=== PATIENT | female | born 2000 | race Caucasian/White ===

== ENCOUNTER 2021-03-14 08:46 | Emergency (ER) | payer SELFPAY ==
[~2021-03-14] VITALS: Ht 157.5 cm; Wt 88.6 kg
[2021-03-14] MEDS ORDERED: ALBUTEROL SUL0.083 % IN (09:08)
[2021-03-14] MEDS ORDERED: MEDDOSEPAK PO ×2 (10:16→11:44)
[2021-03-14] MEDS ORDERED: ZPAK PO ×2 (10:16→11:44)
[2021-03-14] MEDS ORDERED: ROBITUSSIN AC10 ML PO (10:16)
[2021-03-14 10:20] VITALS: BP 117/70
== END 2021-03-14 10:25 | disposition home or self-care (01) | DRG 203 ==
LOC: ED 08:46
DX: J20.9 Acute bronchitis, unspecified (principal); J45.909 Unspecified asthma, uncomplicated; Z20.822 Contact with and (suspected) exposure to COVID-19

== ENCOUNTER 2021-03-26 22:43 | Emergency (ER) | payer OTHER ==
[~2021-03-26 22:43] MED LIST: ALBUTEROL SUL0.083 % IN; MEDDOSEPAK PO; ROBITUSSIN AC10 ML PO; ZPAK PO
[2021-03-27 00:18] LABS: HEMATOCRIT 44.8 % (37.0-47.0); HEMOGLOBIN 14.9 g/dl (12.0-16.0); IMMATURE GRANULOCYTES 0.4 % (0.0-5.0); MEAN CORPUSCULAR HGB 28.6 pG CALC (26.0-32.0); MEAN CORPUSCULAR HGB CONC 33.3 g/dL CAL (32.0-36.0); NEUT# 2.18 thou/uL (2.00-7.15); RED BLOOD COUNT 5.21 mill/uL (4.20-5.60); RED CELL DISTRI WIDTH 11.7 % (11.5-15.5)
[2021-03-27 00:29] LABS: HCG SERUM/URINE (NEG/POS) NEGATIVE (NEGATIVE)
[2021-03-27 00:31] LABS: ALBUMIN 4.1 g/dL (3.2-5.0); ALKALINE PHOSPHATASE 93 u/l (38-126); ANION GAP 13 (6-22 (CALC)); BILIRUBIN, TOTAL 0.2 mg/dL (0.0-1.4); BUN 12 mg/dL (7-17); BUN/CREATININE RATIO 16 (12-20 (CALC)); CARBON DIOXIDE 24 mmol/l (22-30); CHLORIDE 104 mmol/l (95-108); CREATININE 0.7 mg/dL (0.5-1.0); GFR > 60 ML/MIN (>=60 (CALC)); GFR FOR AFR.AMER. > 60 ML/MIN (>=60 (CALC)); POTASSIUM 4.2 mmol/l (3.5-5.1); SGOT/AST 53 u/l (14-36); SODIUM 137 mmol/l (137-146); TOTAL PROTEIN 7.9 g/dL (6.3-8.2)
[2021-03-27 02:41] LABS: URINE BILIRUBIN - DIPSTICK NEGATIVE (NEGATIVE); URINE BLOOD DIPSTICK NEGATIVE (NEGATIVE); URINE COLOR YELLOW; URINE GLUCOSE - DIPSTICK NEGATIVE (NEGATIVE); URINE KETONE TRACE mg/dL (NEGATIVE); URINE LEUK ESTERASE NEGATIVE (NEGATIVE); URINE PROTEIN - DIPSTICK NEGATIVE (NEG-TRACE); URINE SPECIFIC GRAVITY 1.015; URINE UROBILINOGEN - DIPSTICK 0.2 E.U./dL (0.2)
[2021-03-27 02:44] LABS: URINE NITRITE - DIPSTICK NEGATIVE (Negative)
[2021-03-27] MEDS ORDERED: Levaquin PO (02:57)
[2021-03-27 03:09] VITALS: BP 127/73
== END 2021-03-27 03:30 | disposition home or self-care (01) | DRG 179 ==
LOC: ED 22:43
PROVIDERS: Emergency Medicine
DX: U07.1 COVID-19 (principal); J06.9 Acute upper respiratory infection, unspecified; J45.909 Unspecified asthma, uncomplicated; F17.200 Nicotine dependence, unspecified, uncomplicated
CPT/HCPCS: J1956

== ENCOUNTER 2021-03-28 19:53 | Inpatient (IN) | payer OTHER ==
[~2021-03-28] VITALS: Ht 157.5 cm; Wt 99.0 kg
[~2021-03-28 19:53] MED LIST changes: +Levaquin PO
[2021-03-28 20:40] LABS: HEMATOCRIT 39.3 % (37.0-47.0); IMMATURE GRANULOCYTES 0.3 % (0.0-5.0); MEAN CELL VOLUME 87.1 fL CALC (80.0-100.0); MEAN CORPUSCULAR HGB 28.6 pG CALC (26.0-32.0); MEAN CORPUSCULAR HGB CONC 32.8 g/dL CAL (32.0-36.0); NEUT# 2.81 thou/uL (2.00-7.15); RED BLOOD COUNT 4.51 mill/uL (4.20-5.60); RED CELL DISTRI WIDTH 11.6 % (11.5-15.5)
[2021-03-28 20:50] LABS: HEMOGLOBIN 12.9 g/dl (12.0-16.0)
[2021-03-28 21:48] LABS: ALBUMIN 3.5 g/dL (3.2-5.0); ALKALINE PHOSPHATASE 77 u/l (38-126); ANION GAP 13 (6-22 (CALC)); BUN 9 mg/dL (7-17); BUN/CREATININE RATIO 15 (12-20 (CALC)); CARBON DIOXIDE 21 mmol/l (22-30); CHLORIDE 104 mmol/l (95-108); CREATININE 0.6 mg/dL (0.5-1.0); GFR > 60 ML/MIN (>=60 (CALC)); GFR FOR AFR.AMER. > 60 ML/MIN (>=60 (CALC)); POTASSIUM 3.6 mmol/l (3.5-5.1); SGOT/AST 85 u/l (14-36); SODIUM 133 mmol/l (137-146); TOTAL PROTEIN 6.7 g/dL (6.3-8.2)
[2021-03-28 21:49] LABS: BILIRUBIN, TOTAL 0.4 mg/dL (0.0-1.4)
[2021-03-29 01:08] VITALS: BP 103/65
[2021-03-29 01:33] LABS: URINE BILIRUBIN - DIPSTICK NEGATIVE (NEGATIVE); URINE BLOOD DIPSTICK NEGATIVE (NEGATIVE); URINE COLOR YELLOW; URINE GLUCOSE - DIPSTICK NEGATIVE (NEGATIVE); URINE KETONE 15 mg/dL (NEGATIVE); URINE LEUK ESTERASE NEGATIVE (NEGATIVE); URINE PROTEIN - DIPSTICK NEGATIVE (NEG-TRACE); URINE UROBILINOGEN - DIPSTICK 0.2 E.U./dL (0.2)
[2021-03-29 01:41] LABS: URINE NITRITE - DIPSTICK NEGATIVE (Negative)
[2021-03-29 03:00] VITALS: BP 111/72
[2021-03-29 05:39] LABS: ALBUMIN 3.3 g/dL (3.2-5.0); ALKALINE PHOSPHATASE 65 u/l (38-126); ANION GAP 12 (6-22 (CALC)); BILIRUBIN, TOTAL 0.3 mg/dL (0.0-1.4); BUN 9 mg/dL (7-17); BUN/CREATININE RATIO 17 (12-20 (CALC)); C-REACTIVE PROTEIN 3.8 mg/dL (0-0.9); CARBON DIOXIDE 22 mmol/l (22-30); CHLORIDE 106 mmol/l (95-108); CREATININE 0.5 mg/dL (0.5-1.0); GFR > 60 ML/MIN (>=60 (CALC)); GFR FOR AFR.AMER. > 60 ML/MIN (>=60 (CALC)); POTASSIUM 4.2 mmol/l (3.5-5.1); SGOT/AST 76 u/l (14-36); SODIUM 136 mmol/l (137-146); TOTAL PROTEIN 6.5 g/dL (6.3-8.2)
[2021-03-29 06:45] LABS: HEMATOCRIT 37.4 % (37.0-47.0); HEMOGLOBIN 12.3 g/dl (12.0-16.0); IMMATURE GRANULOCYTES 0.6 % (0.0-5.0); MEAN CELL VOLUME 86.2 fL CALC (80.0-100.0); MEAN CORPUSCULAR HGB 28.3 pG CALC (26.0-32.0); MEAN CORPUSCULAR HGB CONC 32.9 g/dL CAL (32.0-36.0); NEUT# 1.33 thou/uL (2.00-7.15); RED BLOOD COUNT 4.34 mill/uL (4.20-5.60); RED CELL DISTRI WIDTH 11.7 % (11.5-15.5)
[2021-03-29 08:29] VITALS: BP 111/62
[2021-03-29 11:12] VITALS: BP 112/79
[2021-03-29 14:45] VITALS: BP 110/66
[2021-03-29 19:20] VITALS: BP 113/61
[2021-03-30 00:17] VITALS: BP 122/71
[2021-03-30 03:54] VITALS: BP 126/73
[2021-03-30 05:38] LABS: HEMATOCRIT 38.4 % (37.0-47.0); HEMOGLOBIN 12.7 g/dl (12.0-16.0); IMMATURE GRANULOCYTES 0.4 % (0.0-5.0); MEAN CELL VOLUME 86.9 fL CALC (80.0-100.0); MEAN CORPUSCULAR HGB 28.7 pG CALC (26.0-32.0); MEAN CORPUSCULAR HGB CONC 33.1 g/dL CAL (32.0-36.0); NEUT# 6.57 thou/uL (2.00-7.15); RED BLOOD COUNT 4.42 mill/uL (4.20-5.60); RED CELL DISTRI WIDTH 11.6 % (11.5-15.5)
[2021-03-30 05:50] LABS: ALBUMIN 3.4 g/dL (3.2-5.0); ALKALINE PHOSPHATASE 65 u/l (38-126); ANION GAP 12 (6-22 (CALC)); BILIRUBIN, TOTAL 0.3 mg/dL (0.0-1.4); BUN 12 mg/dL (7-17); BUN/CREATININE RATIO 24 (12-20 (CALC)); C-REACTIVE PROTEIN 2.1 mg/dL (0-0.9); CARBON DIOXIDE 24 mmol/l (22-30); CHLORIDE 107 mmol/l (95-108); CREATININE 0.5 mg/dL (0.5-1.0); GFR > 60 ML/MIN (>=60 (CALC)); GFR FOR AFR.AMER. > 60 ML/MIN (>=60 (CALC)); POTASSIUM 4.2 mmol/l (3.5-5.1); SGOT/AST 62 u/l (14-36); SODIUM 138 mmol/l (137-146); TOTAL PROTEIN 6.6 g/dL (6.3-8.2)
[2021-03-30 08:18] VITALS: BP 116/61
[2021-03-30 11:00] VITALS: BP 116/72
[2021-03-30 14:45] VITALS: BP 115/56
[2021-03-30 19:00] VITALS: BP 114/76
[2021-03-31] VITALS: BP 96/55
[2021-03-31 04:27] VITALS: BP 97/47
[2021-03-31 06:06] LABS: HEMOGLOBIN 12.5 g/dl (12.0-16.0); IMMATURE GRANULOCYTES 0.8 % (0.0-5.0); MEAN CELL VOLUME 87.6 fL CALC (80.0-100.0); MEAN CORPUSCULAR HGB 28.8 pG CALC (26.0-32.0); MEAN CORPUSCULAR HGB CONC 32.9 g/dL CAL (32.0-36.0); NEUT# 3.61 thou/uL (2.00-7.15); RED BLOOD COUNT 4.34 mill/uL (4.20-5.60); RED CELL DISTRI WIDTH 11.6 % (11.5-15.5)
[2021-03-31 06:28] LABS: ALBUMIN 3.1 g/dL (3.2-5.0); ALKALINE PHOSPHATASE 59 u/l (38-126); ANION GAP 11 (6-22 (CALC)); BILIRUBIN, TOTAL 0.2 mg/dL (0.0-1.4); BUN 13 mg/dL (7-17); BUN/CREATININE RATIO 25 (12-20 (CALC)); CARBON DIOXIDE 25 mmol/l (22-30); CHLORIDE 107 mmol/l (95-108); CREATININE 0.5 mg/dL (0.5-1.0); GFR > 60 ML/MIN (>=60 (CALC)); GFR FOR AFR.AMER. > 60 ML/MIN (>=60 (CALC)); SGOT/AST 46 u/l (14-36); SODIUM 138 mmol/l (137-146)
[2021-03-31 07:25] VITALS: BP 100/52; BP 160/66
[2021-03-31 10:30] VITALS: BP 111/66
[2021-03-31 15:51] VITALS: BP 117/88
[2021-03-31 19:57] VITALS: BP 128/59
[2021-04-01 04:00] VITALS: BP 96/67
[2021-04-01 06:03] LABS: HEMATOCRIT 38.9 % (37.0-47.0); HEMOGLOBIN 12.9 g/dl (12.0-16.0); IMMATURE GRANULOCYTES 2.7 % (0.0-5.0); MEAN CELL VOLUME 86.6 fL CALC (80.0-100.0); MEAN CORPUSCULAR HGB 28.7 pG CALC (26.0-32.0); MEAN CORPUSCULAR HGB CONC 33.2 g/dL CAL (32.0-36.0); NEUT# 3.13 thou/uL (2.00-7.15); RED BLOOD COUNT 4.49 mill/uL (4.20-5.60); RED CELL DISTRI WIDTH 11.4 % (11.5-15.5)
[2021-04-01 06:34] LABS: ALBUMIN 3.1 g/dL (3.2-5.0); ALKALINE PHOSPHATASE 63 u/l (38-126); ANION GAP 11 (6-22 (CALC)); BUN 18 mg/dL (7-17); BUN/CREATININE RATIO 30 (12-20 (CALC)); C-REACTIVE PROTEIN 0.9 mg/dL (0-0.9); CARBON DIOXIDE 25 mmol/l (22-30); CHLORIDE 104 mmol/l (95-108); CREATININE 0.6 mg/dL (0.5-1.0); GFR > 60 ML/MIN (>=60 (CALC)); GFR FOR AFR.AMER. > 60 ML/MIN (>=60 (CALC)); SGOT/AST 36 u/l (14-36); SODIUM 136 mmol/l (137-146)
[2021-04-01 06:43] LABS: BILIRUBIN, TOTAL 0.3 mg/dL (0.0-1.4)
[2021-04-01 07:30] VITALS: BP 110/68
[2021-04-01 15:16] VITALS: BP 110/60
[2021-04-01 19:00] VITALS: BP 115/71
[2021-04-02 04:45] VITALS: BP 102/55
[2021-04-02 05:08] LABS: HEMATOCRIT 39.1 % (37.0-47.0); HEMOGLOBIN 13.2 g/dl (12.0-16.0); MEAN CELL VOLUME 84.6 fL CALC (80.0-100.0); MEAN CORPUSCULAR HGB 28.6 pG CALC (26.0-32.0); MEAN CORPUSCULAR HGB CONC 33.8 g/dL CAL (32.0-36.0); NEUT# 3.78 thou/uL (2.00-7.15); RED BLOOD COUNT 4.62 mill/uL (4.20-5.60); RED CELL DISTRI WIDTH 11.3 % (11.5-15.5)
[2021-04-02 05:20] LABS: IMMATURE GRANULOCYTES 6.7 % (0.0-5.0)
[2021-04-02 05:40] LABS: ALBUMIN 3.2 g/dL (3.2-5.0); ALKALINE PHOSPHATASE 57 u/l (38-126); ANION GAP 11 (6-22 (CALC)); BILIRUBIN, TOTAL 0.4 mg/dL (0.0-1.4); BUN 19 mg/dL (7-17); BUN/CREATININE RATIO 40 (12-20 (CALC)); CARBON DIOXIDE 26 mmol/l (22-30); CHLORIDE 102 mmol/l (95-108); CREATININE 0.5 mg/dL (0.5-1.0); GFR > 60 ML/MIN (>=60 (CALC)); GFR FOR AFR.AMER. > 60 ML/MIN (>=60 (CALC)); POTASSIUM 4.1 mmol/l (3.5-5.1); SGOT/AST 36 u/l (14-36); SODIUM 135 mmol/l (137-146); TOTAL PROTEIN 6.2 g/dL (6.3-8.2)
[2021-04-02 06:45] VITALS: BP 110/62
[2021-04-02] MEDS ORDERED: DECADRON2 MG PO (13:05)
[2021-04-02] MEDS ORDERED: ASPIRIN REGULA325 M1 PO (13:06)
== END 2021-04-02 15:23 | disposition home or self-care (01) | DRG 177 ==
LOC: ED 19:53 → ED-I 22:44 → ED 23:08 → MS2 23:09
PROVIDERS: Emergency Medicine; Nurse Practitioner; ADMIT Hospitalist; ATTEND Hospitalist
PROC: XW033E5 Introduction of Remdesivir Anti-infective into Peripheral Vein, Percutaneous Approach, New Technology Group 5 (ICD-10-PCS; principal; 2021-03-29)
DX: U07.1 COVID-19 (principal); J12.82 Pneumonia due to coronavirus disease 2019; J45.901 Unspecified asthma with (acute) exacerbation; R09.02 Hypoxemia; F41.9 Anxiety disorder, unspecified
CPT/HCPCS: J1650

== ENCOUNTER 2021-04-09 06:53 | Emergency (ER) | payer SELFPAY ==
[~2021-04-09] VITALS: Ht 157.5 cm; Wt 100.0 kg
[~2021-04-09 06:53] MED LIST changes: +ASPIRIN REGULA325 M1 PO; +DECADRON2 MG PO
[2021-04-09 07:55] LABS: HEMATOCRIT 44.2 % (37.0-47.0); HEMOGLOBIN 14.4 g/dl (12.0-16.0); IMMATURE GRANULOCYTES 3.7 % (0.0-5.0); MEAN CORPUSCULAR HGB 28.7 pG CALC (26.0-32.0); MEAN CORPUSCULAR HGB CONC 32.6 g/dL CAL (32.0-36.0); NEUT# 7.54 thou/uL (2.00-7.15); RED BLOOD COUNT 5.02 mill/uL (4.20-5.60)
[2021-04-09 08:13] LABS: ANION GAP 11 (6-22 (CALC)); BUN 21 mg/dL (7-17); BUN/CREATININE RATIO 34 (12-20 (CALC)); CARBON DIOXIDE 27 mmol/l (22-30); CHLORIDE 104 mmol/l (95-108); CREATININE 0.6 mg/dL (0.5-1.0); GFR > 60 ML/MIN (>=60 (CALC)); GFR FOR AFR.AMER. > 60 ML/MIN (>=60 (CALC)); POTASSIUM 4.3 mmol/l (3.5-5.1); SODIUM 137 mmol/l (137-146)
[2021-04-09] MEDS ORDERED: PREDNISONE50 MG PO (08:20)
[2021-04-09 08:32] VITALS: BP 122/78
== END 2021-04-09 08:50 | disposition home or self-care (01) | DRG 556 ==
LOC: ED 06:53
PROVIDERS: Family Medicine
DX: M25.532 Pain in left wrist (principal); M25.531 Pain in right wrist; M25.572 Pain in left ankle and joints of left foot; M25.571 Pain in right ankle and joints of right foot; M25.562 Pain in left knee; M25.561 Pain in right knee; J45.909 Unspecified asthma, uncomplicated; F17.200 Nicotine dependence, unspecified, uncomplicated; Z86.16 Personal history of COVID-19

== ENCOUNTER 2021-08-22 16:55 | Emergency (ER) | payer SELFPAY ==
[~2021-08-22 16:55] MED LIST changes: +PREDNISONE50 MG PO
[2021-08-23] MEDS ORDERED: VENTOLIN HFA IN (09:03)
[2021-08-23] MEDS ORDERED: ZPAK PO (09:03)
== END 2021-08-22 18:30 | disposition left against medical advice (07) | DRG 951 ==
LOC: ED 16:55 → LWOBS 18:30
DX: Z53.21 Procedure and treatment not carried out due to patient leaving prior to being seen by health care provider (principal)

== ENCOUNTER 2021-08-23 08:37 | Emergency (ER) | payer SELFPAY ==
[~2021-08-23] VITALS: Ht 157.5 cm; Wt 85.9 kg
[2021-08-23] MEDS ORDERED: ZPAK PO (09:03)
[2021-08-23] MEDS ORDERED: VENTOLIN HFA IN (09:03)
[2021-08-23 10:25] VITALS: BP 145/85
== END 2021-08-23 10:25 | disposition home or self-care (01) | DRG 153 ==
LOC: ED 08:37
DX: J01.90 Acute sinusitis, unspecified (principal); J45.909 Unspecified asthma, uncomplicated; F17.200 Nicotine dependence, unspecified, uncomplicated; Z20.822 Contact with and (suspected) exposure to COVID-19

== ENCOUNTER 2021-09-10 04:53 | Emergency (ER) | payer SELFPAY ==
[~2021-09-10] VITALS: Ht 157.5 cm; Wt 89.0 kg
[~2021-09-10 04:53] MED LIST changes: +VENTOLIN HFA IN
[2021-09-10] MEDS ORDERED: ZPAK PO (05:40)
[2021-09-10] MEDS ORDERED: TESSALON PERLE100 MG PO (05:40)
[2021-09-10 05:50] VITALS: BP 143/90
== END 2021-09-10 05:50 | disposition home or self-care (01) | DRG 179 ==
LOC: ED 04:53
DX: U07.1 COVID-19 (principal); J45.909 Unspecified asthma, uncomplicated; F17.200 Nicotine dependence, unspecified, uncomplicated

== ENCOUNTER 2022-08-01 10:45 | Emergency (ER) | payer SELFPAY ==
[2022-08-01] VITALS (11 sets, daily range): BP systolic 113–131; BP diastolic 72–92
[~2022-08-01] VITALS: Ht 157.5 cm; Wt 95.5 kg
[~2022-08-01 10:45] MED LIST changes: +TESSALON PERLE100 MG PO
[2022-08-01] MEDS ORDERED: ZPAK PO (11:28)
== END 2022-08-01 13:30 | disposition home or self-care (01) | DRG 153 ==
LOC: ED 10:45
DX: J06.9 Acute upper respiratory infection, unspecified (principal); J45.909 Unspecified asthma, uncomplicated